=== PATIENT | male | born 1935 | race Hispanic/Latino ===

== ENCOUNTER 2020-12-12 11:29 | Emergency (ER) | payer MEDICARE ==
--- NOTE | 2020-12-12 11:41 | Emergency Department Report ---
ED CPR HPI - General Chief Complaint: Cardiac Arrest/CPR Stated Complaint: CARDIAC ARREST Time Seen by Provider: 12/12/20 11:36 Source: EMS (Verbal report received from emergency medical services. EMS documentation not available at time of chart dictation ) Mode of arrival: Stretcher Limitations: Altered Mental Status, Physical Limitation - History of Present Illness Initial Comments: The patient is a gentleman, who is chronically ill-appearing, appears to be in his late 60s, early 70s, who is brought to the hospital by emergency medical services as an [id number] nontraumatic cardiac arrest. Patient arrives receiving CPR, with a supraglottic airway in place, with a GCS of 3. History obtained entirely from EMS. EMS reports that family indicated the patient had trouble breathing last night, and stopped breathing this morning, and appeared to be in acute distress. EMS reports the patient arrested in the field, and has been pulseless and pulseless electrical activity, for approximately 25 minutes. He has received 3 rounds of epinephrine, and aggressive and continuous chest compressions, from a Radhames compression device. EMS reports no shockable rhythm. Upon arrival to this ER, the patient is receiving active CPR, with a GCS of 3. His pupils do not react to light bilaterally. Patient received standard ACLS interventions. He receives epinephrine, sodium bicarbonate, and calcium chloride. Continuous chest compressions were administered. Pulses are not obtainable. Bedside ultrasound shows no coordinated cardiac activity, and therefore, secondary to prolonged downtime, lack of shockable rhythm, and medical futility, resuscitative efforts were thus terminated. At the moment, the patient is not accompanied by friends or family at this time for collateral information or additional history. The patient arrived in arrest, and therefore, is not able to describe the qualitative nature of his symptoms, exacerbating factors, relieving factors, or aggravating factors. MD Complaint: stopped breathing -: minute(s) (EMS states patient is pulseless for 25 minutes prior to ER arrival) Place: home Initial Findings in the Field: no pulse, PEA Treatments Prior to Arrival: other airway device (Supraglottic area), chest compressions, epinephrine mgs # ED Review of Systems ROS: Stated complaint: CARDIAC ARREST Other details as noted in HPI Comment: All other systems reviewed and negative ED Physical Exam - General Limitations: Altered Mental Status, Physical Limitation, Other (GCS of 3) General appearance: obtunded, other (Patient is nonverbal) - Head Head exam: Present: atraumatic, normocephalic - Eye Eye exam: Present: normal appearance, other (Pupils 3 mm and do not react to light) - ENT ENT exam: Present: normal exam, mucous membranes moist, normal external ear exam (Supraglottic airway noted in the) - Neck Neck exam: Present: normal inspection - Respiratory Respiratory exam: Present: other (No breath sounds unless [id number] ventilation is applied) - Cardiovascular Cardiovascular Exam: Present: other (The patient is pulseless). Absent: regular rate, normal rhythm - GI/Abdominal GI/Abdominal exam: Present: soft - exam: Present: normal inspection External exam: Present: normal external exam - Extremities Exam Extremities exam: Present: other (Patient is pale. Patient has heel pads. There is tape applied to his bilateral lower ankle) - Back Exam Back exam: Present: normal inspection - Neurological Exam Neurological exam: Present: altered, other (Nonverbal, GCS of 3T) - Skin Skin exam: Present: pallor ED Medical Decision Making - Medical Decision Making Differential diagnosis, including but not limited to: Acute coronary syndrome, anemia, pulmonary embolism, pneumonia, bacteremia, viremia Critical care attestation.: If time is entered above; I have spent that time in minutes in the direct care of this critically ill patient, excluding procedure time. ED Disposition Clinical Impression: Cardiac arrest Disposition: DC-20 Is pt being admited?: No Does the pt Need Aspirin: No Condition: Undetermined
== END 2020-12-12 19:01 ==
LOC: EDBD → ED 11:29
DX: I46.9 Cardiac arrest, cause unspecified (principal)
CPT/HCPCS: 82962; 92950